=== PATIENT | female | born 1990 | race Caucasian/White ===

== ENCOUNTER 2018-07-03 18:11 | Emergency (ER) | payer BC, MEDICAID, OTHER ==
[~2018-07-03] VITALS: Ht 152.4 cm; Wt 130.0 kg
[~2018-07-03 18:11] MED LIST: PREN1TAB49 PO
[2018-07-03 18:14] VITALS: Ht 152.4 cm; Wt 130.0 kg
[2018-07-03] MEDS ORDERED: morphine 4 MG/ML VIAL IV STA (18:35)
[2018-07-03] MEDS ORDERED: BELLADONNA/PHENOBARBITAL TAB PO STA (18:35)
[2018-07-03] MEDS ORDERED: LIDOCAINE/MYLANTA 40 ML BTL PO STA (18:35)
[2018-07-03] MEDS ORDERED: ONDANSETRON 4 MG INJ IV STA (18:35)
[2018-07-03] MEDS ORDERED: SOD CHLORIDE 0.9% 1,000 ML IV STA (18:35)
--- NOTE | 2018-07-03 18:47 | ERD ---
ER Documentation Chief Complaint Chief Complaint epigastric pain w/ diarrhea vomitting since last night HPI 27-year-old female with a history of gallstones presents with history of diarrhea, vomiting, and epigastric pain which started last night. Patient states that she ate fried chicken legs before hand. Patient states that even drinking water makes her stomach hurt. Patient has not vomited. Once this morning. Vomitus was nonbilious and nonbloody. Diarrhea was nonbloody. LMP was 1 week ago. History of cholelithiasis. Denies allergies. Denies medications. . Denies alcohol, tobacco, drug use. Up to date on v accines. ROS All systems reviewed and are negative except as per history of present illness. Medications Home Meds Active Scripts Ondansetron (Ondansetron Odt) 4 Mg Tab.rapdis, 4 MG PO Q6H PRN for NAUSEA AND/OR VOMITING, #10 TAB Prov:LACI FRIAS 07/03/18 Loperamide Hcl* (Imodium*) 2 Mg Capsule, 2 MG PO .AFTER EA LOOSE BM PRN for DIARRHEA, #10 TAB Prov:LACI FRIAS 07/03/18 Hydrocodone/Acetaminophen ([place] 5-325 Tablet) 1 Each Tablet, 1 TAB PO Q6H PRN for PAIN, #10 TAB Prov:LACI FRIAS 07/03/18 Ibuprofen* (Motrin*) 600 Mg Tab, 600 MG PO Q6 for pain, #30 TAB Prov:LACI FRIAS 07/03/18 Reported Medications Vits W-Ca,Fe,Fa(<1MG) () 1 Tab Tablet, 1 TAB PO DAILY, #1 07/05/12 Allergies Allergies: Coded Allergies: No Known Allergies (Verified Allergy, Unknown, 07/05/12) PMhx/Soc History of Surgery: Yes () Anesthesia Reaction: No Hx Neurological Disorder: No Hx Respiratory Disorders: No Hx Cardiac Disorders: No Hx Psychiatric Problems: No Hx Miscellaneous Medical Probl: Yes (fatty liver, gallstone) Hx Alcohol Use: Yes (occasionally) Hx Substance Use: No Hx Tobacco Use: No Smoking Status: Never smoker FmHx Family History: No diabetes, No coronary disease, No other Physical Exam Vitals Vital Signs Date Temp Pulse Resp B/P (MAP) Pulse Ox O2 O2 Flow FiO2 Time Delivery Rate 07/03/18 98.4 86 16 132/86 100 Room Air 21:46 (101) 07/03/18 100.3 100 18 133/79 99 18:14 (97) Physical Exam General: Well developed, well nourished. No acute distress. Heart: RR w/o murmur, rubs, or gallops. Lungs: Clear to auscultation bilaterally w/o wheezes, crackles, rhonchi. Symmetric rise and fall. Equal breath sounds. Abdomen: Pain in upper right and upper left quadrant. Positive McBurney's tenderness. Negative Chamberlain's. Psych: Normal mood and affect. Result Diagram: 07/03/18189907/03/181899 Results 24 hrs Laboratory Tests Test 07/03/18 19:00 07/03/18 19:12 White Blood Count 7.4 10^3/ul Red Blood Count 4.76 10^6/ul Hemoglobin 12.4 g/dl Hematocrit 40.0 % Mean Corpuscular Volume 84.0 fl Mean Corpuscular Hemoglobin 26.1 pg Mean Corpuscular Hemoglobin Concent 31.0 g/dl Red Cell Distribution Width 14.6 % Platelet Count 263 10^3/UL Mean Platelet Volume 10.5 fl Immature Granulocytes % 0.100 % Neutrophils % 91.3 % Lymphocytes % 5.4 % Monocytes % 2.8 % Eosinophils % 0.3 % Basophils % 0.1 % Nucleated Red Blood Cells % 0.0 /100WBC Immature Granulocytes # 0.010 10^3/ul Neutrophils # 6.7 10^3/ul Lymphocytes # 0.4 10^3/ul Monocytes # 0.2 10^3/ul Eosinophils # 0.0 10^3/ul Basophils # 0.0 10^3/ul Nucleated Red Blood Cells # 0.0 10^3/ul Urine Color YELLOW Urine Clarity SLIGHTLY CLOUDY Urine pH 5.0 Urine Specific [place] 1.024 Urine Ketones 1+ mg/dL Urine Nitrite NEGATIVE mg/dL Urine Bilirubin NEGATIVE mg/dL Urine Urobilinogen NEGATIVE mg/dL Urine Leukocyte Esterase NEGATIVE Jesus/ul Urine Microscopic RBC 2 /HPF Urine Microscopic WBC 1 /HPF Urine Squamous Epithelial Cells FEW /HPF Urine Bacteria FEW /HPF Urine Mucus FEW /HPF Urine Hemoglobin NEGATIVE mg/dL Urine Glucose NEGATIVE mg/dL Urine Total Protein NEGATIVE mg/dl Sodium Level 138 mmol/L Potassium Level 3.8 mmol/L Chloride Level 105 mmol/L Carbon Dioxide Level 20 mmol/L Anion Gap 13 Blood Urea Nitrogen 14 mg/dl Creatinine 0.58 mg/dl Est Glomerular Filtrat Rate mL/min > 60 mL/min Glucose Level 117 mg/dl Calcium Level 9.6 mg/dl Total Bilirubin 0.5 mg/dl Direct Bilirubin 0.00 mg/dl Indirect Bilirubin 0.5 mg/dl Aspartate Amino Transf (AST/SGOT) 32 IU/L Alanine Aminotransferase (ALT/SGPT) 28 IU/L Alkaline Phosphatase 109 IU/L Total Protein 8.5 g/dl Albumin 4.8 g/dl Globulin 3.70 g/dl Albumin/Globulin Ratio 1.29 Lipase 25 U/L POC Beta HCG, Qualitative NEGATIVE Current Medications Medications Dose Sig/Taylor Start Time Status Last (Trade) Ordered Route PRN Stop Time Admin Dose Reason Admin Sodium 1,000 ml @ Q1H STAT 07/03/18 DC 07/03/18 Chloride 1,000 mls/hr IV 18:35 19:06 07/03/18 19:34 Morphine 4 mg ONCE STAT 07/03/18 DC 07/03/18 Sulfate IV 18:35 19:14 (morphine) 07/03/18 18:44 Ondansetron 4 mg ONCE STAT 07/03/18 DC 07/03/18 HCl (Zofran IV 18:35 19:14 Inj) 07/03/18 18:44 40 ml ONCE STAT 07/03/18 DC 07/03/18 Miscellaneous PO 18:35 19:14 Medication 07/03/18 18:44 (Gi Cocktail (2)) Belladonna/ 2 tab ONCE STAT 07/03/18 DC 07/03/18 Phenobarbital PO 18:35 19:14 () 07/03/18 18:44 IV Flush 10 ml STK-MED 07/03/18 DC (NS 10 ml) ONCE .ROUTE 20:35 07/03/18 20:36 Sodium 100 ml @ ud STK-MED 07/03/18 DC Chloride ONCE .ROUTE 20:35 07/03/18 20:36 Iohexol 150 ml STK-MED 07/03/18 DC (Omnipaque ONCE .ROUTE 20:35 300mg/ ml) 07/03/18 20:36 Procedures/MDM DIAGNOSTIC IMAGING REPORT Patient: LAUREL GRAMAJO : 1990 Age: 27 Sex: F MR #: [id number] DOS: 07/03/18 1835 Ordering MD: LACI FRIAS Location: [facility] Room/Bed: PROCEDURE: CT abdomen and pelvis with contrast. CLINICAL INDICATION: Abdominal pain. TECHNIQUE: CT of the abdomen/pelvis was performed utilizing axial images with reconstructions in sagittal and coronal planes following the intravenous administration of 100 cc of Isovue 300 contrast. The administered radiation dose is CTDI 23.77 mGy, DLP 1466.5 mGy-cm. One or more of the following dose reduction techniques were used: Automated exposure control, Adjustment of the mA and/or kV according to patient size, or Use of iterative reconstruction technique. DICOM images are available. COMPARISON: There are no similar studies submitted for comparison. FINDINGS: Lung bases: The lung bases are clear.The heart is normal size without pericardial effusion. CT ABDOMEN: Gastrointestinal tract: There is no bowel obstruction.The appendix is normal size without inflammatory changes.No abnormal colonic wall thickening is identified.There is no pneumoperitoneum. Liver: The liver is normal in size without focal lesion. There is mild hepatic fatty infiltration. There is no intrahepatic ductal dilatation. Gallbladder: Gallstones are noted. Pancreas: The pancreas is grossly unremarkable. Spleen: The spleen is normal in size without focal lesion. Kidneys: The kidneys are normal in size and contour.No renal calculi are identified.There is no evidence of hydronephrosis. Adrenal glands: The bilateral adrenal glands are unremarkable. Retroperitoneum: There is no retroperitoneal adenopathy.The aorta is normal in caliber. There is a small fat containing umbilical hernia. CT PELVIS: Pelvic organs: The uterus is present. Bladder: The bladder is unremarkable. There is no pelvic free fluid.No pelvic adenopathy is identified. Osseous structures: No destructive lytic or blastic osseous lesion is identified. IMPRESSION: 1. No acute abdominal pathology. 2. Cholelithiasis. 3. Mild hepatic fatty infiltration. Correlate with LFTs. Further findings as detailed above. RPTAT: HVF .Van Fodera, MD, MD Date Time Electronically viewed and signed by .Van Abdi MD, MD on 07/03/2018 21:12 .F/ CC: LACI FRIAS [id number] DIAGNOSTIC IMAGING REPORT Patient: LAUREL GRAMAJO : 1990 Age: 27 Sex: F MR #: [id number] DOS: 07/03/18 1835 Ordering MD: LACI FRIAS Location: [facility] Room/Bed: PROCEDURE: US Abdomen (right upper quadrant). CLINICAL INDICATION: Right upper quadrant pain TECHNIQUE: Multiple real-time longitudinal and transverse images of the right upper quadrant of the abdomen were acquired utilizing a curved array transducer. Images were reviewed on a high-resolution PACS workstation. COMPARISON: None FINDINGS: The liver is normal in size and fatty in echogenicity without focal mass or int rahepatic biliary dilatation. The gallbladder is nondistended with multiple large calcified stones within the lumen. There is no significant gallbladder wall thickening.. The common bile duct measures 2.9 mm in maximal dimension. The visualized portions of the pancreas are unremarkable with obscuration of the tail of the pancreas. No free fluid is identified. The right kidney measures 10.3 cm in length. There is no evidence of obstructive uropathy or urolithiasis. No renal masses seen. Visualized portions aorta and inferior vena cava are normal. IMPRESSION: Cholelithiasis. Hepatic steatosis. RPTAT: QQ .Lauro Rodríguez MD, Date Time Electronically viewed and signed by .Lauro Rodríguez MD, MD on 07/03/2018 19:49 .L/ CC: LACI FRIAS [id number] MDM: 27-year-old female with a history of gallstones presents with history of diarrhea, vomiting, and epigastric pain which started last night. Patient states that she ate fried chicken legs before hand. Patient states that even drinking water makes her stomach hurt. Patient has not vomited. Once this morning. Vomitus was nonbilious and nonbloody. Diarrhea was nonbloody. LMP was 1 week ago. Labs within normal limits. Given patient history as well as findings for gallbladder ultrasound as well as abdominal and pelvic CT. Both ultrasound and CT showed cholelithiasis with no other abnormalities. Patient educated regarding the course that cholelithiasis takes and that to be managed on outpatient basis and possibly with surgery. Patient was given medication for her pain in the ER as well as discharged with as well as medication to control her diarrhea and vomiting. Based on labs, patient history and exam, and imaging, I have low suspicion for acute abdomen, bowel obstruction, AAA, aortic dissection, IA, acute pancreatitis, ovarian torsion, appendicitis, cholecystitis. Patient discharged with strict ER precautions. Patient advised to follow up with PMD. All questions answered at discharge. Departure Diagnosis: Primary Impression: Cholelithiases Cholelithiasis location: gallbladder Cholecystitis presence: without cholecystitis Biliary obstruction: without biliary obstruction Qualified Codes: K80.20 - Calculus of gallbladder without cholecystitis without obstruction Condition: Stable LACI FRIAS Jul 03, 2018 18:47
[2018-07-03] MEDS ORDERED: IOHEXOL 300MG/ML 150 ML BTL ONE (20:35)
[2018-07-03] MEDS ORDERED: SOD CHLORIDE 0.9% 100 ML ONE (20:35)
[2018-07-03] MEDS ORDERED: HYDR-4011 PO (21:31)
[2018-07-03] MEDS ORDERED: IBUP-1542 PO (21:31)
[2018-07-03] MEDS ORDERED: LOPE2CAP PO (21:32)
[2018-07-03] MEDS ORDERED: ONDA4TAB14 PO (21:32)
[2018-07-03 21:46] VITALS: BP 132/86; PULSE 86; RESP 16
== END 2018-07-03 21:47 | disposition home or self-care (01) ==
LOC: FTE 18:11
DX: K80.20 Calculus of gallbladder without cholecystitis without obstruction (principal)
CPT/HCPCS: 36415; 74177; 76705; 80053; 81001; 81025; 83690; 85025; 96374; 96375; 99285; J2270; J2405; J7030; Q9967; Z7610; 81003

== ENCOUNTER 2018-11-28 21:24 | Emergency (ER) | payer BC ==
[~2018-11-28] VITALS: Ht 152.4 cm; Wt 133.1 kg
[~2018-11-28 21:24] MED LIST changes: +HYDR-4011 PO; +IBUP-1542 PO; +LOPE2CAP PO; +ONDA4TAB14 PO
[2018-11-28 21:26] VITALS: Ht 152.4 cm; Wt 133.1 kg
[2018-11-29] MEDS ORDERED: ACETAMINOPHEN 325 MG TAB PO STA (01:41)
--- NOTE | 2018-11-29 01:47 | ERD ---
ER Documentation Chief Complaint Chief Complaint VAG BLEED, 13 WEEKS HPI Patient is a 27 years old 13 months female presenting to the clinic for vaginal bleeding since 9:15PM. Patient reports initial gush of blood followed by spotting. Patient admits to mild pelvic pain. Patient denies fever, chills, night sweats, dysuria, vaginal discharge. Patient admits to following up with [employer]. Patient reports LMP on August 24, 2018. ROS All systems reviewed and are negative except as per history of present illness. Medications Home Meds Active Scripts Nitrofurantoin Monohyd Macrocr* (Macrobid*) 100 Mg Capsr, 100 MG PO BID for 7 Days, #14 CAP Prov:ANALIA PERALTA PA-C 11/29/18 Ondansetron (Ondansetron Odt) 4 Mg Tab.rapdis, 4 MG PO Q6H PRN for NAUSEA AND/OR VOMITING, #10 TAB Prov:LACI FRIAS 07/03/18 Loperamide Hcl* (Imodium*) 2 Mg Capsule, 2 MG PO .AFTER EA LOOSE BM PRN for DIARRHEA, #10 TAB Prov:LACI FRIAS 07/03/18 Hydrocodone/Acetaminophen ([place] 5-325 Tablet) 1 Each Tablet, 1 TAB PO Q6H PRN for PAIN, #10 TAB Prov:LACI FRIAS 07/03/18 Ibuprofen* (Motrin*) 600 Mg Tab, 600 MG PO Q6 for pain, #30 TAB Prov:LACI FRIAS 07/03/18 Reported Medications Vits W-Ca,Fe,Fa(<1MG) () 1 Tab Tablet, 1 TAB PO DAILY, #1 07/05/12 Allergies Allergies: Coded Allergies: No Known Allergies (Verified Allergy, Unknown, 07/05/12) PMhx/Soc History of Surgery: Yes () Anesthesia Reaction: No Hx Neurological Disorder: No Hx Respiratory Disorders: No Hx Cardiac Disorders: No Hx Psychiatric Problems: No Hx Miscellaneous Medical Probl: Yes (fatty liver, gallstone) Hx Alcohol Use: Yes (occasionally) Hx Substance Use: No Hx Tobacco Use: No Physical Exam Vitals Vital Signs Date Temp Pulse Resp B/P (MAP) Pulse Ox O2 O2 Flow FiO2 Time Delivery Rate 11/29/18 97.7 53 18 143/77 98 04:55 (99) 11/28/18 98.4 82 18 184/81 97 21:26 (115) Physical Exam Const: No acute distress Head: Atraumatic Eyes: Normal Conjunctiva Resp: Clear to auscultation bilaterally Cardio: Regular rate and rhythm, no murmurs Abd: Soft, non tender, non distended. Normal bowel sounds Skin: No petechiae or rashes Back: No midline or flank tenderness Ext: No cyanosis, or edema Neur: Awake and alert Psych: Normal Mood and Affect Result Diagram: 11/29/18 0149 Results 24 hrs Laboratory Tests Test 11/29/18 01:49 White Blood Count 8.1 10^3/ul Red Blood Count 4.20 10^6/ul Hemoglobin 11.2 g/dl Hematocrit 36.0 % Mean Corpuscular Volume 85.7 fl Mean Corpuscular Hemoglobin 26.7 pg Mean Corpuscular Hemoglobin Concent 31.1 g/dl Red Cell Distribution Width 16.2 % Platelet Count 222 10^3/UL Mean Platelet Volume 10.8 fl Immature Granulocytes % 0.200 % Neutrophils % 64.0 % Lymphocytes % 27.4 % Monocytes % 4.9 % Eosinophils % 3.1 % Basophils % 0.4 % Nucleated Red Blood Cells % 0.0 /100WBC Immature Granulocytes # 0.020 10^3/ul Neutrophils # 5.2 10^3/ul Lymphocytes # 2.2 10^3/ul Monocytes # 0.4 10^3/ul Eosinophils # 0.3 10^3/ul Basophils # 0.0 10^3/ul Nucleated Red Blood Cells # 0.0 10^3/ul Urine Color YELLOW Urine Clarity SLIGHTLY CLOUDY Urine pH 6.0 Urine Specific [place] 1.009 Urine Ketones NEGATIVE mg/dL Urine Nitrite NEGATIVE mg/dL Urine Bilirubin NEGATIVE mg/dL Urine Urobilinogen NEGATIVE mg/dL Urine Leukocyte Esterase 1+ Jesus/ul Urine Microscopic RBC 4 /HPF Urine Microscopic WBC 17 /HPF Urine Squamous Epithelial Cells FEW /HPF Urine Hemoglobin 3+ mg/dL Urine Glucose NEGATIVE mg/dL Urine Total Protein NEGATIVE mg/dl Beta HCG, Quantitative 71799.0 mIU/ml Current Medications Medications Dose Sig/Taylor Start Time Status Last (Trade) Ordered Route PRN Stop Time Admin Dose Reason Admin 650 mg ONCE STAT 11/29/18 DC 6/18/19 Acetaminophen PO 01:41 02:01 (Tylenol 11/29/18 01:43 Tab) Procedures/MDM Patient was seen and evaluated for vaginal bleeding. CBC and Urinalysis revealed leukocyte esterase and hematuria, which signifies UTI. Pelvic ultrasound revealed Single live intrauterine gestation with estimated gestational age of 13 weeks 1 day. Patient is stable and ready for discharge. F/U with [employer]. Patient was given Macrobid. Departure Diagnosis: Primary Impression: Vaginal bleeding Condition: Stable Patient Instructions: VBPG Referrals: [facility] Additional Instructions: Patient advised to return to the ED immediately for new or worsening symptoms. Patient advised to follow up with primary care provider in the next 24-48 hours. Patient verbalized understanding and agrees with treatment plan and course of action. If patient has no primary care they may follow up with [facility] + [facility] [address] [place] [id number] or [facility] [address] [place] [address] or [facility] [address] [place] [address] ANALIA PERALTA PA-C Nov 29, 2018 01:47
[2018-11-29] MEDS ORDERED: NITR-58 PO (04:39)
[2018-11-29 04:55] VITALS: BP 143/77; PULSE 53; RESP 18
== END 2018-11-29 04:55 | disposition home or self-care (01) ==
LOC: FTE 21:24
DX: O20.9 Hemorrhage in early pregnancy, unspecified (principal); R10.2 Pelvic and perineal pain; Z3A.13 13 weeks gestation of pregnancy
CPT/HCPCS: 36415; 76801; 81001; 84702; 85025; 86900; 86901; 99284; Z7610